=== PATIENT | female | born 1955 | race Caucasian/White ===

== ENCOUNTER 2024-11-19 10:30 | Inpatient (IN) | payer MEDICARE ==
[2024-11-19] MEDS ORDERED: Magnesium 2 GM/50 ML BAG (IN WATER) ONE (10:51)
[2024-11-19] MEDS ORDERED: Lorazepam 2 MG/ML VIAL ONE ×2 (10:51→16:53)
[2024-11-19] MEDS ORDERED: Albuterol 2.5 MG (3 mL) NEB ONE (10:54)
[2024-11-19] MEDS ORDERED: Dexamethasone 10 MG/ML VIAL ONE (10:54)
[2024-11-19] MEDS ORDERED: Ipratropium/Albuterol 3 ML NEB ONE (10:54)
[2024-11-19 11:08] LABS: #Basophils 0.17 10x3/uL (0.0-0.2); #Eosinophils Less than 0.03 10x3/uL (0.0-0.7); %Basophils 0.8 % (0.0-1.0); %Lymphocytes 5.7 % (21.0-51.0); %Monocytes 6.6 % (0.0-10.0); %Neutrophils 84.8 % (42.0-75.0); Hematocrit 46.7 % (36.0-47.0); Hemoglobin 15.1 g/dL (12.0-16.0); Mean Corpuscular HGB CONC 32.3 g/dL (32.0-36.0); Mean Corpuscular Hemoglobin 30.2 pg (27.0-31.0); Mean Corpuscular Volume 93.4 fL (78.0-98.0); Mean Platelet Volume 9.1 fL (7.4-10.4); Platelet Count 462 10x3/uL (130-400); RBC Distribution Width 13.8 % (11.5-14.5)
[2024-11-19 11:21] LABS: Actual Bicarbonate (HCO3a) 16.8 mEq/L (22-28); Analyzer IN Cardio ER; Base Excess (BEa) -10.3 mEq/L (-2.0 to +3.0); CO2 Tension 41.4 mmHg (35.0-45.0); Calcium, Ionized (arterial) 1.23 mmol/L (1.12-1.30); Hematocrit-ABG 40 % (36.0-47.0); Hemoglobin (Hb) 13.5 g/dL (12.0-16.0); O2 Tension (PaO2), arterial 106.4 mmHg (> 80.0); Potassium - ABG Lab 4.13 mmol/L (3.70-5.30); pH, Arterial 7.227 (7.35-7.45)
[2024-11-19 11:24] LABS: ALT (SGPT) 12 U/L (Less than 34); AST (SGOT) 29 U/L (11-34); Albumin 3.4 g/dL (3.1-4.5); Alkaline Phosphatase 136 U/L (40-110); Anion Gap 26 mmol/L (10-20); BUN (Urea Nitrogen) 13 mg/dL (9.8-20.1); Bilirubin, Total 0.5 mg/dL (0.3-1.2); Calc. Creatinine Clearance 0 mL/min (70-130); Calcium 9.5 mg/dL (7.8-10.44); Carbon Dioxide 14 mmol/L (23-31); Chloride 101 mmol/L (98-107); Estimated GFR 102; Globulin 4.7 g/dL (2.4-3.5); Glucose 106 mg/dL (80-115); Potassium 4.8 mmol/L (3.5-5.1); Protein, Total 8.1 g/dL (5.8-8.1); Sodium 136 mmol/L (136-145)
[2024-11-19 11:36] LABS: Puncture Site Right Radial artery
[2024-11-19] MEDS ORDERED: cefTRIAXone (ROCEPHIN) 2 GM VIAL ONE (11:39)
[2024-11-19] MEDS ORDERED: Sodium Chloride 0.9% 100 ML ONE (11:40)
[2024-11-19] MEDS ORDERED: Iopamidol-370 76% 500 ML MDV (1 ML CHARGE) ONE (13:12)
[2024-11-19] MEDS ORDERED: Calcium Carbonate 500 MG ChewTAB PO PRN (14:42)
[2024-11-19] MEDS ORDERED: Guaifenesin DM 100-10/5 ML UDCUP PO PRN (14:42)
[2024-11-19] MEDS ORDERED: Senokot S 8.6-50 MG TAB PO PRN (14:42)
[2024-11-19] MEDS ORDERED: Ipratropium/Albuterol 3 ML NEB NEB PRN (14:42)
[2024-11-19] MEDS ORDERED: KETAMINE 100 MG/ML (5ML VIAL) ONE (15:12)
[2024-11-19 16:22] LABS: Actual Bicarbonate (HCO3a) 15.8 mEq/L (22-28); Analyzer IN Cardio ER; Carboxyhemoglobin (COHb) 0.7 gm% (0.0-3.0); Hematocrit-ABG 36 % (36.0-47.0); Hemoglobin (Hb) 12.4 g/dL (12.0-16.0); O2 Tension (PaO2), arterial 277.7 mmHg (> 80.0); Potassium - ABG Lab 4.17 mmol/L (3.70-5.30); pH, Arterial 7.325 (7.35-7.45)
[2024-11-19 16:23] LABS: Bacteria/HPF None Seen HPF (None Seen); Bilirubin Negative (Negative); Blood, Urine 2+ (Negative); CAUTI Indications for Culture Alt mental st,lethar; Clarity Clear (Clear); Glucose, Urine (Dipstick) Normal (Negative); Ketone, Urine 60 mg/dL (Negative); Leukocyte Negative Leu/uL (Negative); Nitrite Negative (Negative); Protein, Urine (Dipstick) 20 mg/dL (Neg-Trace); Squamous Epithelial 0-3 HPF (0-3); Urobilinogen Normal mg/dL (Less than 2); WBC/HPF 0-3 HPF (0-3); pH, Urine 5.5 (5.0-9.0)
[2024-11-19 16:24] LABS: Specific Gravity, Urine 1.055 (1.002-1.036)
[2024-11-19 16:25] LABS: Puncture Site Left Brachial artery
[2024-11-19 16:25] LABS: Urine Culture Reflex No No
[2024-11-19] MEDS ORDERED: NOREPINEPHRINE 8 MG/250 ML-D5W 250 ML ONE (17:07)
[2024-11-19] MEDS ORDERED: NOREPINEPHRINE 8 MG/250 ML-D5W 250 ML IVPB SCH (17:15)
[2024-11-19 19:22] LABS: Lactic Acid 2.02 mmol/L (0.50-2.20)
[2024-11-19 19:34] LABS: Critical Call Chem Troponin I RESULT DECREASING; Troponin I 0.506 ng/mL (< 0.028)
[2024-11-19] MEDS: Arformoterol 15 MCG/2 ML NEB NEB SCH (19:59)
[2024-11-19] MEDS: LevoFLOXacin 750 mg/D5W 750 MG in Premix 1 BAG IVPB SCH (20:18)
[2024-11-19] MEDS: Azithromycin 500 MG in Sodium Chloride 0.9% 250 ML 250 ML IVPB SCH (20:19)
[2024-11-19] MEDS: Sodium Chloride 0.9% 1,000 ML IV SCH (20:19)
[2024-11-19] MEDS: methylPREDNISolone Sod Succ 40 MG VIAL IVP SCH (20:19)
[2024-11-19] MEDS: Famotidine 20 MG TAB PO SCH (20:42)
[2024-11-19 21:30] LABS: Phosphorus 2.2 mg/dL (2.5-4.5)
[2024-11-19 21:39] LABS: Albumin 2.5 g/dL (3.1-4.5); Anion Gap 15 mmol/L (10-20); BUN (Urea Nitrogen) 11 mg/dL (9.8-20.1); BUN/Creatinine Ratio 22.45; Calc. Creatinine Clearance 71 mL/min (70-130); Calcium 7.4 mg/dL (7.8-10.44); Carbon Dioxide 14 mmol/L (23-31); Chloride 112 mmol/L (98-107); Estimated GFR 104; Glucose 164 mg/dL (80-115); Potassium 4.4 mmol/L (3.5-5.1); Sodium 137 mmol/L (136-145)
[2024-11-19] MEDS: Dexmedetomidine In 0.9 % NaCl 100 ML IV SCH (21:51)
[2024-11-20 05:09] VITALS: BMI 17.7
[2024-11-20 06:03] LABS: #Basophils 0.06 10x3/uL (0.0-0.2); %Basophils 0.4 % (0.0-1.0); %Eosinophils 0.3 % (0.0-10.0); %Lymphocytes 4.6 % (21.0-51.0); %Monocytes 5.1 % (0.0-10.0); %Neutrophils 86.6 % (42.0-75.0); Hemoglobin 10.8 g/dL (12.0-16.0); Mean Corpuscular HGB CONC 31.8 g/dL (32.0-36.0); Mean Corpuscular Hemoglobin 30.6 pg (27.0-31.0); Mean Corpuscular Volume 96.3 fL (78.0-98.0); Mean Platelet Volume 8.9 fL (7.4-10.4); Platelet Count 322 10x3/uL (130-400); RBC Distribution Width 13.9 % (11.5-14.5); Red Blood Cell (RBC) Count 3.53 mill/uL (4.20-5.40)
[2024-11-20 06:21] LABS: ALT (SGPT) 10 U/L (Less than 34); AST (SGOT) 18 U/L (11-34); Albumin 2.2 g/dL (3.1-4.5); Alkaline Phosphatase 91 U/L (40-110); Anion Gap 13 mmol/L (10-20); BUN (Urea Nitrogen) 11 mg/dL (9.8-20.1); Bilirubin, Total 0.2 mg/dL (0.3-1.2); Calc. Creatinine Clearance 78 mL/min (70-130); Calcium 7.2 mg/dL (7.8-10.44); Carbon Dioxide 17 mmol/L (23-31); Chloride 117 mmol/L (98-107); Critical Call Chem Troponin I RESULT DECREASING; Estimated GFR 105; Globulin 3.1 g/dL (2.4-3.5); Glucose 145 mg/dL (80-115); Potassium 4.5 mmol/L (3.5-5.1); Protein, Total 5.3 g/dL (5.8-8.1); Sodium 142 mmol/L (136-145); Troponin I 0.373 ng/mL (< 0.028)
[2024-11-20] MEDS: Enoxaparin 30 MG (0.3 mL) SYRINGE SC SCH (09:12)
[2024-11-20] MEDS: cefTRIAXone\\ROCEPHIN 1 GM in Sodium Chloride 0.9% 100 ML IVPB SCH (12:24)
[2024-11-20] MEDS: Famotidine/PF 20 mg/2ml Vial SLOW IVP SCH (19:06)
[2024-11-20] MEDS: Fentanyl CADD 100 ML IV SCH (20:51)
[2024-11-21 08:49] LABS: Hematocrit 37.9 % (36.0-47.0); Hemoglobin 12.2 g/dL (12.0-16.0); Mean Corpuscular HGB CONC 32.2 g/dL (32.0-36.0); Mean Corpuscular Hemoglobin 30.1 pg (27.0-31.0); Mean Corpuscular Volume 93.6 fL (78.0-98.0); Mean Platelet Volume 9.1 fL (7.4-10.4); Platelet Count 343 10x3/uL (130-400); Red Blood Cell (RBC) Count 4.05 mill/uL (4.20-5.40)
[2024-11-21 08:55] LABS: Phosphorus 2.6 mg/dL (2.5-4.5)
[2024-11-21 08:57] LABS: ALT (SGPT) 9 U/L (Less than 34); AST (SGOT) 15 U/L (11-34); Albumin 2.4 g/dL (3.1-4.5); Alkaline Phosphatase 100 U/L (40-110); Anion Gap 11 mmol/L (10-20); BUN (Urea Nitrogen) 21 mg/dL (9.8-20.1); Bilirubin, Total 0.2 mg/dL (0.3-1.2); Calc. Creatinine Clearance 75 mL/min (70-130); Calcium 8.1 mg/dL (7.8-10.44); Carbon Dioxide 22 mmol/L (23-31); Chloride 115 mmol/L (98-107); Estimated GFR 104; Globulin 3.1 g/dL (2.4-3.5); Glucose 126 mg/dL (80-115); Potassium 4.4 mmol/L (3.5-5.1); Protein, Total 5.5 g/dL (5.8-8.1); Sodium 144 mmol/L (136-145)
[2024-11-21 09:09] LABS: Band 2 % (5-11); Lymphocytes 3 % (21-51); Macrocytosis SLIGHT = 6-15 cells HPF (0-5); Monocytes 12 % (0-10); Neutrophil 81 % (42-75); Platelet Adequacy Comment Platelets Normal; Polychromasia SLIGHT = 2-3 cells HPF (0-2); Reactive Lymphocytes 2 % (0-10); Smudge Cells 7.1 %; Toxic Granulation SLIGHT; Vacuoles SLIGHT
[2024-11-21] MEDS: FLU (Fluad Triv) TS24-25 (65UP)/MF59C/PF 45 MCG/0.5 ML Syringe IM ONE (09:26)
[2024-11-21 14:45] VITALS: BMI 17.7
[2024-11-21] MEDS: ALPRAZolam 0.25 MG TAB PO PRN (15:26)
[2024-11-21] MEDS: Budesonide 0.5 MG/2 ML NEB INH SCH (19:22)
[2024-11-21] MEDS: methylPREDNISolone Sod Succ 40 MG VIAL IVP SCH (19:32)
[2024-11-21] MEDS: Acetaminophen/Codeine 30-300mg Tablet PO PRN (19:34)
[2024-11-22 09:47] LABS: Hematocrit 37.6 % (36.0-47.0); Hemoglobin 12.2 g/dL (12.0-16.0); Mean Corpuscular HGB CONC 32.4 g/dL (32.0-36.0); Mean Corpuscular Volume 92.4 fL (78.0-98.0); Mean Platelet Volume 9.2 fL (7.4-10.4); Platelet Count 381 10x3/uL (130-400); RBC Distribution Width 13.8 % (11.5-14.5); Red Blood Cell (RBC) Count 4.07 mill/uL (4.20-5.40)
[2024-11-22 10:14] LABS: Band 3 % (5-11); Lymphocytes 2 % (21-51); Monocytes 8 % (0-10); Neutrophil 87 % (42-75); Platelet Adequacy Comment Platelets Normal; Polychromasia SLIGHT = 2-3 cells HPF (0-2)
[2024-11-22] MEDS: Oxymetazoline HCl 0.05% (30 ML BOT) NS SCH (13:02)
[2024-11-22] MEDS: Famotidine 20 MG TAB PO SCH (21:32)
[2024-11-23] MEDS: methylPREDNISolone Sod Succ 40 MG VIAL IVP SCH (08:50)
[2024-11-24] MEDS: predniSONE 20 MG TAB PO SCH (08:37)
[2024-11-24 13:30] VITALS: BP 129/68
[2024-11-24 16:26] VITALS: TEMP 98.2
== END 2024-11-24 16:30 | disposition home or self-care (01) | DRG 208 ==
LOC: ERS 10:30 → SUATTDRO 10:30 → ERHOLD 14:55 → CCU 19:48 → SURG A 11-22 17:21
PROVIDERS: ADMIT Internal Medicine; ATTEND Internal Medicine
PROC: 4A133R1 Monitoring of Arterial Saturation, Peripheral, Percutaneous Approach (ICD-10-PCS; principal; 2024-11-19)
PROC: 5A1945Z Respiratory Ventilation, 24-96 Consecutive Hours (ICD-10-PCS; 2024-11-19)
PROC: 3E03329 Introduction of Other Anti-infective into Peripheral Vein, Percutaneous Approach (ICD-10-PCS; 2024-11-19)
PROC: 3E033XZ Introduction of Vasopressor into Peripheral Vein, Percutaneous Approach (ICD-10-PCS; 2024-11-19)
PROC: 0BH17EZ Insertion of Endotracheal Airway into Trachea, Via Natural or Artificial Opening (ICD-10-PCS; 2024-11-19)
DX: J69.0 Pneumonitis due to inhalation of food and vomit (principal); A41.9 Sepsis, unspecified organism; J96.01 Acute respiratory failure with hypoxia; J44.1 Chronic obstructive pulmonary disease with (acute) exacerbation; E87.20 Acidosis, unspecified; G47.00 Insomnia, unspecified; R79.89 Other specified abnormal findings of blood chemistry; D64.9 Anemia, unspecified; F41.9 Anxiety disorder, unspecified; M19.90 Unspecified osteoarthritis, unspecified site; Z87.891 Personal history of nicotine dependence; Z90.710 Acquired absence of both cervix and uterus
CPT/HCPCS: 31500; 36415; 36600; 43752; 71045; 71275; 80053; 81001; 82805; 83605; 83880; 84100; 84145; 84484; 85025; 85379; 87040; 87070; 87086; 87205; 87428; 87633; 93005; 93306; 94003; 94640; 96365; 96366; 96367; 96375; 96376; J0456; J0696; J1100; J1650; J1956; J2060; J2919; J3010; J3475; J3490; J7050; J7512; J7611; J7620; J7626; Q9967